=== PATIENT | female | born 1950 | race Caucasian/White ===

== ENCOUNTER 2017-01-24 07:48 | Outpatient (CLI) | payer BC, OTHER ==
--- NOTE | 2017-01-24 10:40 | DIAGNOSTIC IMAGING REPORT ---
PROCEDURE: US COMPLETE PELVIC W/TRANSVAG INDICATION: NAUSEA,BLOATING TECHNIQUE: Transabdominal and endovaginal romero scale and color Doppler sonographic images of the female pelvis were obtained. COMPARISON: 06/25/2011 FINDINGS: TRANSABDOMINAL SCANS: Anteverted uterus measures about 5.1 cm in length. Normal contour and echotexture. Normal adnexa without suspicious mass. The visible portion of the urinary bladder is normal. No significant free pelvic fluid. TRANSVAGINAL SCANS: The uterus is anteverted and anteflexed in position and has a heterogeneous myometrial echo texture with multiple small rounded hypoechoic fibroids and scattered coarse calcifications. The uterus measures 5.1 x 5.2 x 2.6 cm. The endometrium is 5 mm in thickness. There are tiny cysts along the periphery of the endometrial stripe. No abnormal vascularity. Neither ovary was visible. No suspicious adnexal masses or free pelvic fluid. IMPRESSION: 1. Age appropriate uterine size. 2. No suspicious adnexal masses. 3. Degenerating fibroid change to the uterine myometrium. 4. Mild cystic changes to the endometrium, which remains of normal caliber, likely representing normal variant cystic atrophy. The appearance is slightly progressed compared to the prior study but was present previously.
--- NOTE | 2017-01-24 10:45 | DIAGNOSTIC IMAGING REPORT ---
PROCEDURE: US ABDOMEN ULTRASOUND-COMPLETE INDICATION: NAUSEA,BLOATING TECHNIQUE: Dale scale and color Doppler sonographic images of the abdomen were obtained without comparison. COMPARISON: CT abdomen pelvis 04/15/2014 and abdominal ultrasound 04/05/2014 FINDINGS: The liver is normal in size, contour, and echotexture. No mass or intrahepatic biliary dilatation. The gallbladder is normal without stones or sludge. The wall is normal thickness measuring 2.4 mm. No pericholecystic fluid or Izaguirre sign. The extrahepatic common duct is normal measuring 2.5 mm. The visualized pancreas is normal without ductal dilatation or peripancreatic fluid collection. The abdominal aorta is normal in its course and caliber. The retrohepatic inferior vena cava is patent. There is appropriate hepatopetal flow in the portal vein. The right kidney measures 9.7 x 5.3 x 4.7 cm. The left kidney measures 10.5 x 4.6 x 5.1 cm. There is a 3.7 x 2.6 x 2.5 cm exophytic cyst arising from the upper pole, stable compared to the prior study. Both kidneys demonstrate normal morphology and cortical thickness without hydronephrosis, solid mass, or shadowing calculus. Color Doppler imaging demonstrates normal blood flow in each kidney. The spleen is normal in size measuring 8.9 cm in length. There is no perihepatic or perisplenic ascites. IMPRESSION: 1. Normal abdominal ultrasound aside from a stable left renal cyst.
== END 2017-01-24 23:00 ==
LOC: US SRH 07:48
DX: R11.0 Nausea (principal); R14.0 Abdominal distension (gaseous); D25.9 Leiomyoma of uterus, unspecified; N85.8 Other specified noninflammatory disorders of uterus